=== PATIENT | female | born 1955 | race Caucasian/White ===

== ENCOUNTER → 2019-02-10 08:45 | Outpatient (CLI) | payer MEDICARE, BC, SELFPAY ==
--- NOTE | 2019-02-10 | DI.ECHO.S_ITS ---
[facility] +---------+ : : [address] : [place] : : : : [id number] : : : : Phone: [phone]+ Echocardiogram Report + + :Name: LAURA MCINTOSH Study Date: 02/10/2019 Height: 63 in : :[facility] Exam Location: [facility] Weight: 224 lb : : Gender: Female BSA: 2.0 m2 : :: 1955 Age: 63 yrs BP: 132/70 mmHg: :Reason For Study: Murmur/HTN : :Ordering Physician: Cristy Damico Performed By: Leigh Page : + + Interpretation Summary The ejection fraction is estimated to be 60-65%. The ascending aorta is mildly enlarged. There is no significant valvular heart disease. Procedure: A two-dimensional transthoracic echocardiogram with color flow and Doppler was performed. The study quality was technically adequate. There is no prior echocardiogram noted for this patient. The patient was in normal sinus rhythm during the exam. The patient had occasional PVCs during the exam. Left Ventricle: Left ventricular wall thickness is borderline increased. The left ventricle is normal in size. The ejection fraction is estimated to be 60- 65%. There are no focal wall motion abnormalities. Right Ventricle: The right ventricle is normal in size and function. Atria: Both atria are normal in size. There is no Doppler evidence for an interatrial shunt. Mitral Valve: The mitral valve is normal in structure and function. There is no mitral regurgitation noted. Aortic Valve: The aortic valve is grossly normal. The aortic valve opens well. No aortic regurgitation is present. Tricuspid Valve: The tricuspid valve is normal in structure and function. There is a trace or physiologic amount of tricuspid regurgitation. Pulmonary artery pressures cannot be estimated because of the lack of a measurable TR jet velocity. Pulmonic Valve: The pulmonic valve is not well seen, but is grossly normal. There is a trace or physiologic amount of pulmonic regurgitation. Great Vessels: The aortic root is normal size. The ascending aorta is mildly enlarged. The pulmonary artery is normal size. The inferior vena cava was not visualized. Pericardium/ Pleura There is no pericardial effusion. There is no pleural effusion. MMode/2D Measurements & Calculations LVIDd: 5.0 cm Ao root diam: 3.4 cm LVIDs: 2.9 cm asc Aorta Diam: 4.0 cm FS: 41.0 % IVSd: 0.92 cm LVPWd: 0.95 cm LV menjivar. diameter/BSA (cm/m^2): 2.4 LV sys. diameter/BSA (cm/m^2): 1.4 LA A2 area: 20.8 cm2 RA long axis: 5.6 cm LA A4 area: 18.8 cm2 RA area: 18.5 cm2 LA length (vol): 5.5 cm RA vol: 51.9 ml LA vol: 60.4 ml RA : 25.6 ml/m2 LA vol index: 29.8 ml/m2 RVD1 (basal): 3.4 cm RVD2 (mid): 3.0 cm TAPSE: 1.8 cm Doppler Measurements & Calculations Ao V2 max: 175.9 cm/sec LVOT Max Sher: 120.9 cm/sec Ao V2 mean: 116.8 cm/sec LV V1 max P.8 mmHg Ao max P.4 mmHg LV V1 VTI: 18.7 cm Ao mean P.2 mmHg sev ratio: 0.72 Ao V2 VTI: 25.9 cm MV E max sher: 58.9 cm/sec PA V2 max: 94.0 cm/sec MV A max sher: 87.2 cm/sec PA V2 mean: 56.3 cm/sec MV E/A: 0.68 PA mean P.6 mmHg Med Peak E' Sher: 6.2 cm/sec PA Accel Time: 0.11 sec E/E' med: 9.5 Lat Peak E' Sher: 4.7 cm/sec E/E' lat: 12.4 E/e' average: 11.0 MV P1/2t: 46.4 msec MV P1/2t max sher: 59.5 cm/sec MVA(P1/2t): 4.7 cm2 Reading Physician:01:22 PM
== END ==
PROVIDERS: PCP Internal Medicine; Visit Provider Internal Medicine
DX: R01.1 Cardiac murmur, unspecified (principal); I10 Essential (primary) hypertension
CPT/HCPCS: 93306

== ENCOUNTER → 2019-03-21 11:52 | Outpatient (CLI) | payer MEDICARE, BC, SELFPAY ==
--- NOTE | 2019-03-21 | DI.CT.S_ITS ---
PROCEDURE: CT LE RT WO CON INDICATIONS: INILATERAL PRIMARY OSTEOATHRITS R HIP TECHNIQUE: Noncontrast 3 mm axial sections acquired through the bony pelvis. Additional 3 mm axial sections acquired through the symptomatic hip joint, with coronal and sagittal reformats. COMPARISON: None. FINDINGS: Image quality: Excellent. Bones: Moderate to severe right hip joint osteoarthritic changes are seen with near complete loss of superior articulating surface, extensive subchondral sclerosis and cyst formation and marginal osteophyte formation. There is no acute fracture or dislocation. No suspicious intraosseous bony lesion. No evidence of avascular necrosis of femoral head. Mild left hip joint osteoarthritic changes are seen. Bilateral pars defect at L5 level is seen with grade 2 anterolisthesis of L5 on S1 is noted. Degenerative disc disease at L5-S1 level is seen. Soft tissues: No gross right hip or right hemipelvic soft tissue abnormality is seen. No significant joint effusion. There is no bowel obstruction. No peritoneal free fluid or free air. IMPRESSION: 1. Moderate to severe right hip joint osteoarthritis. No fracture or dislocation. No evidence of avascular necrosis of femoral head. 2. Mild left hip joint osteoarthritis. 3. Bilateral pars defect at L5 level with grade 2 anterolisthesis of L5 on S1. Degenerative disc disease at L5-S1 level. Dictated by: Michael Flowers M.D. on 03/21/2019 at 14:02 Approved by: Michael Flowers M.D. on 03/21/2019 at 14:24
== END ==
PROVIDERS: PCP Internal Medicine; Visit Provider Orthopaedic Surgery
DX: M16.11 Unilateral primary osteoarthritis, right hip (principal)
CPT/HCPCS: 73700

== ENCOUNTER 2019-07-31 05:50 | Inpatient (IN) | payer MEDICARE, BC, SELFPAY ==
[2019-07-17 10:01] VITALS: BMI 41.8
[2019-07-31] VITALS (22 sets, daily range): BP systolic 61–154; BP diastolic 35–86; PULSE 72–106; RESP 13–21; TEMP 35.5–37.3; O2SAT 90–98; BMI 41.8
--- NOTE | 2019-07-31 | DI.RAD.S_ITS ---
PROCEDURE: XR PELVIS 1-2V INDICATIONS: TOTAL RT HIP INTEROP TECHNIQUE: Intra-operative view of the pelvis and hip acquired. COMPARISON: [facility], [place], XR PELVIS 1-2V, 07/31/2019, 9:09. FINDINGS: Bones: Intraoperative devices prior to placement of arthroplasty prostheses are in expected positions. No fractures or suspicious bony lesions. Soft tissues: Overlying surgical retractors are present, along with other intraoperative changes. IMPRESSION: Intraoperative image obtained during the patient's right hip arthroplasty. Dictated by: Armin Burt M.D. on 07/31/2019 at 10:03 Approved by: Armin Burt M.D. on 07/31/2019 at 10:04
--- NOTE | 2019-07-31 | DI.RAD.S_ITS ---
PROCEDURE: XR PELVIS 1-2V INDICATIONS: TOTAL RIGHT HIP TECHNIQUE: 1 view of the lower pelvis acquired. COMPARISON: [facility], CT, CT LE RT WO CON, 03/21/2019, 12:10. [facility], CR, XR PELVIS 1 OR 2 VIEWS, 06/20/2019, 13:23. FINDINGS: Bones: Patient is status post right total hip arthroplasty, with hardware components in expected positions. The hip joint appears congruent. The visualized bony structures appear intact. Soft tissues: Overlying postoperative changes are noted. No suspicious soft tissue densities. IMPRESSION: Satisfactory appearance of the right total hip arthroplasty on this single projection. Dictated by: Teddy Dodd M.D. on 07/31/2019 at 9:59 Approved by: Teddy Dodd M.D. on 07/31/2019 at 10:03
--- NOTE | 2019-07-31 | DI.RAD.S_ITS ---
PROCEDURE: XR PELVIS 1-2V INDICATIONS: POST OP TECHNIQUE: 1 view of the lower pelvis acquired. COMPARISON: [facility], [place], XR PELVIS 1-2V, 07/31/2019, 10:22. [facility], [place], XR PELVIS 1-2V, 07/31/2019, 9:09. FINDINGS: Bones: Patient is status post right hip arthroplasty, with hardware components in expected positions. The hip joint appears congruent. The visualized bony structures appear intact. Soft tissues: Overlying postoperative changes are noted. No suspicious soft tissue densities. IMPRESSION: No [place] bone injury found after operative procedure of right total hip arthroplasty. Normal alignment established. Dictated by: Clovis Hurley M.D. on 07/31/2019 at 12:37 Approved by: Clovis Hurley M.D. on 07/31/2019 at 12:38
[2019-07-31] MEDS: LACTATED RINGERS 1,000 ML 42 ML IV ×4 (07:12→12:19)
[2019-07-31] MEDS: PREGABALIN 75 MG CAPSULE PO (07:17)
[2019-07-31] MEDS: CELECOXIB 200 MG CAPSULE PO (07:17)
[2019-07-31] MEDS: ACETAMINOPHEN 325 MG TABLET 975 MG PO (07:17)
--- NOTE | 2019-07-31 07:41 | PM.PREOP ---
Pre-operative Note Interval Note History & Physical reviewed/Exam performed by Physician: Yes Changes to H&P: No H&P completed within 30 days and has changed as indicated here:: Plan for posterior R MESHA
[2019-07-31] MEDS: CEFAZOLIN 2 GM/100 ML FROZ.PIGGY IV (07:45)
[2019-07-31] MEDS: ROPIVACAINE 0.5% PF 5 MG/ML 20ML VIAL 60 ML INJ (08:23)
[2019-07-31] MEDS: MORPHINE 4 MG/ML INJ INJ (08:24)
[2019-07-31] MEDS: KETOROLAC 30 MG/ML VIAL IV (08:24)
[2019-07-31] MEDS: TRANEXAMIC ACID 1,000 MG VIAL 2000 MG INJ ×2 (08:25→10:52)
--- NOTE | 2019-07-31 08:34 | SUR.OPER ---
Lateral on padded OR bed. Gel axillary roll. Arms secured on padded armboard with pillow supporting top arm. Padded hip positioner braces x4 - anterior and posterior chest and pelvis. Additional gel pad used anterior pelvis. Gel pad under bottom leg from knee to foot and secured with tape over sheet.
--- NOTE | 2019-07-31 11:17 | PM.OP.1 ---
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 External rotation contracture. Hip flexion contracture. Closure Type: primary Specimen(s): none sent Prosthetic devices, grafts, tissues, transplants, or devices: Munson [employer]hew size 52 cup multi hole 52 mm liner for a 36 head with a 20 degree lip Munson [employer]hew size 12 synergy porous stem Thirty-six Oxinium head +0 Estimated Blood Loss (mL): 700 Procedure in detail: Patient was met in the preoperative holding area with signs of surgery marked by MD all last minute questions were answered. Patient was then brought back in the operating room where she received a spinal anesthetic and was then placed in the left lateral decubitus position all bony prominences were well padded. Mac anesthesia was then provided. The right hip was then prepped and draped in normal sterile fashion. The greater trochanter was marked out and a 12 cm curvilinear incision was made skin incisions made using a 10 blade followed by electrocautery in the subcutaneous layer down to the level of the ITB and ID band was then cleared using a curved osteotome. The IP band was then incised using a new 10. Blade as well as the superior gluteal fascia. The gluteus cheryl fibers were then split in line with with the fibers. At this point was noted that she'd a large gluteus medius and was very contracted both in external rotation and hip flexion. The piriformis was released. As well as the short external rotators and part of the quadratus femoris. A capsular flap was attempted to be treated however he was so sure as to be unusable. The hip was then dislocated and the femoral neck cut was then made using an oscillating saw. We then turned attention to the cup side a Cobra was used to retract the femur anteriorly a 2nd Cobra was placed posteriorly inferiorly. We began reaming with a 43 mm Reamer up to a 47 mm Reamer. The posterior wall was stranding within this point but still had lots of anterior wall. It began up sizing reamers to a 49. A 50 mm cup was then placed. The trial liner was then placed. We then returned our attention to the femoral side a canal finer was then used followed by a lateralized Reamer followed by power reamers 03/03/2010 and 06 06. Began broaching 05/05/2012 and got good 6 secure fit with the size 12 broach with good rotational stability. We then trialed with a standard offset head and neck. Intraop x-ray was taken to verify positioning and leg length. Overall were happy with both. We then dislocated the hip returned to the acetabular side and placed 3 screws followed by a 20 degree lip liner. We then trialed again at this point the cup disengage from the acetabulum Boone screws present. The cup was then removed along with the screws. We then reassessed our acetabular cup and it could not find any discontinuity in the pelvis. Or posterior wall fracture. I then reamed up to 51 mm Reamer making sure to take only bone from the anterior wall a 52 mm multi hole cup was then selected. This was malleted into place. Intraoperative x-ray was taken to verify positioning 3 screws were then placed into the 52 mm multi hole cup. Trialing was again performed at this point I determined that she would require a lipped liner. A 52 mm 20 degree lip liner was then placed and the hip was brought through range of motion again. No posterior impingement with external rotation and was stable full flexion. At 90? of flexion internal rotation she could internally rotate 50? prior to subluxation. The hip was then dislocated the broach was then removed and a size 12 synergy stem was placed. A 36 mm Oxinium head was then malleted onto the trunnion and hip was reduced and brought through final range of motion. The wound was then copiously irrigated. We're not able to repair the posterior capsule as it was too short. The piriformis was also too tight to repair his way that it would compress the sciatic nerve. The quadratus was repaired along with the ITB band ID band was closed using 1. Vicryl interrupted fashion followed by 1. Vicryl in running suture for the superior gluteal fascia. A 1. Vicryl was then used in the subcutaneous layer followed by 2. Vicryl in interrupted fashion in the subcuticular followed by a strata Fix of by Dermabond followed by Aquacel dressing. Complications: none Post-operative Condition: stable Disposition: PACU Plan for aftercare: Posterior hip precautions. Abduction in brace in bed. WBAT LLE. ASA 81mg BID for DVT prophyalxis for 6 weeks.
[2019-07-31] MEDS: fentaNYL 100 MCG/2 ML INJ IV (11:33)
[2019-07-31] MEDS: INSULIN ASPART 100 UNIT/ML 10ML VIAL SUBCUT (12:03)
[2019-07-31] MEDS: OXYCODONE IR 5 MG TABLET PO ×3 (12:18→19:53)
--- NOTE | 2019-07-31 12:53 | SUR.PHASEI ---
Addendum entered by Nitza Santacruz R.N. 07/31/19 13:27: Patient taken to room 205 in bed with all belongings. Report given to receiving nurse. Systolic blood pressure upon arrival of 106. Patient left in stable condition with receiving RN at bedside. Original Note: 1145 - Received patient from previous nurse Ivette. Patient hypotensive since surgery. Anesthesiologist aware and at bedside. Patient has second liter of LR hanging with pressure bag in place per verbal order. Patient complains of pain. Wedge pillow placed between legs perDr. Foster as patient wishes to lay on side. Attempted to dissuade patient from laying onside, but patient continues to complain off lower back pain. Dr. Foster aware and gave ok to be on side as long as immobility pillow is in place between legs. Patient repositioned with pillow in place for comfort. Continues to have low blood pressures, but is asymptomatic. 1257 - Patient 's last two blood pressures showed MAP's of 72 ant 78. Patient resting peacefully in bed with eyes closed and even, unlabored breathing. Dr. Vickers updated on blood pressures and stable status. States she is comfortable with her going to floor.
[2019-07-31] MEDS: LACTATED RINGERS 1,000 ML 125 ML IV ×2 (13:51→22:04)
[2019-07-31] MEDS: ACETAMINOPHEN 325 MG TABLET 650 MG PO ×2 (14:57→20:00)
--- NOTE | 2019-07-31 15:47 | PC.NURSE ---
1315 received from PACU, patient laying in bed, blood pressure improved and patient talkative and pleasant. Abduction device in place. Aquacel dressing in place to right hip and CDI. Wiggling toes and legs, with + CMS. Denies nausea. IV fluids started as ordered. Patient oriented to room and call light. Her is at bedside. Call light within reach, bed alarm activated for safety. Patient states she took pain medications in the pacu and is starting to get relief and would like to try to rest and nap.
--- NOTE | 2019-07-31 15:48 | PT.IIE ---
Current Diagnoses Other unilateral secondary osteoarthritis of hip (07/31/19) Surgery Performed Operation Date: 07/31/19 07:45 Actual Procedures p Total Hip Arthroplasty(Right) - Sam Foster MD Surgical History (Last Updated 07/17/19 @ 12:11 by Georgie Singh RN) Hx of LASIK (Acute) Status post breast reduction Status post delivery Status post hysterectomy Medical History (Last Updated 07/17/19 @ 12:11 by Georgie Singh RN) HLD (hyperlipidemia) (Acute) HTN (hypertension) (Acute) YESIKA on CPAP (Acute) Osteoarthritis (Acute) Physical Therapy Inpatient Evaluation/Re-Eval M1 PT/OT-IP Prior Functional Status Start: 07/31/19 13:52 Freq: NEEDED Status: Active Protocol: Document 07/31/19 15:23 AW (Rec: 07/31/19 15:48 AW [id number]) Medical Review Prior Functional Status Medical History Reviewed Yes Communication WNL Mobility and Gait Independent with pain but without assistive device up to parking lot distances. Pt could ambulate car to store and then use shopping cart for support. Activities of Daily Living and IADL's Pt endorses difficulty donning shoes and socks, requiring occasional assist from her , but was otherwise independent with ADL's Social History Household Members spouse Living Arrangements House Number of Floors (Floors) Two Floors Number of Stairs To Enter/Railing? 1 with post on right side + deck + short threshold. May be able to use walker on these stairs. Enters on main level and the house is set up so that pt can live on the main level. They use the upstairs for guests only. Home Environment High Toilet,Walk in Shower, Built-In Shower Seat Home Equipment Front Wheel Walker,Straight Cane,Raised Toilet Seat w/ Armrests,Hand Held Shower, Spanish Medical Interpreter,Grab Bars Near Toilet Employment Status Retired Additional Social History Comment Pt lives with her retired , Benjy, who is able and available to assist as needed. Note: pt tends to sleep shifted toward left side due to chronic back pain. PT advised pt to use abduction pillow at all times for sleeping in order to maintain precautions and avoid crossing midline with the R LE. M2 PT-IP Current Condition Start: 07/31/19 13:52 Freq: NEEDED Status: Active Protocol: Document 07/31/19 15:23 AW (Rec: 07/31/19 15:48 AW [id number]) Physical Therapy Current Condition Current Condition Evaluation Date 07/31/19 Treatment Diagnosis s/p R MESHA with posterior approach;difficulty in walking Onset Date 07/31/19 Precautions Posterior Hip Precautions No Hip Flexion > 90 degrees,No Hip Internal Rotation,No Hip Adduction Other Precautions abduction pillow at all times in the bed; consider use of abduction pillow while up in chair. Weight Bearing Status Weight Bearing Status Weight Bear as Tolerated M3 PT-IP Subjective Start: 07/31/19 13:52 Freq: NEEDED Status: Active Protocol: Document 07/31/19 15:23 AW (Rec: 07/31/19 15:48 AW [id number]) Subjective Physical Therapy Visit Type Type Initial Evaluation Visit Start Time 14:25 Visit Stop Time 15:04 Total Visit Minutes 39 Notes Pt's spouse, Benjy, present throughout evaluation. Number of EXTERNAL GRINDER Visits 0 Physical Therapy Visit Comments Patient Comments Pt is sleepy but willing to mobilize with PT Patient Goals To go home with spouse assistance Therapy Pain Assessment Pain When Pain Assessed During Mobility Pain Present Pain Present Pain Reported Location right hip Intensity 3 Scale Used 3/10 at rest; unchanged with mobility Pain Management Techniques Apply Cold,Re-positioning, Timing of Activity with Medications M4 PT-IP Mobility and Gait Start: 07/31/19 13:52 Freq: NEEDED Status: Active Protocol: Document 07/31/19 15:23 AW (Rec: 07/31/19 15:48 AW [id number]) PT-Bed Mobility Assessment Supine to Sit Supine to Sit Moderate Assistance,1 Person Assistance,Bedrails Scooting Scooting to Edge of Bed Contact Guard Assistance PT-Transfer Assessment Sit to and From Stand Sit to and from Stand Minimal Assistance,Moderate Assistance,1 Person Assistance ,Use of Upper Extremities Equipment Transfer Assistive Device Gait Belt,Front Wheeled Walker Orthotic/Prosthetic Devices or Brace: No Transfers Transfer Destination Chair Transfer Technique Stand Step Pivot Transfer Ability Level of Assist Minimal Assistance,1 Person Assistance,Use of Upper Extremities Comments Mobility Comments BP supine was 119/58. Pt completed supine to sit with min A x 1 to rotate her hips using draw sheet and to pull up to seated position. Scooting toward EOB required CGA for balance. Pt was able to sit EOB with and without UE support. She complained of mild lightheadedness in sitting with BP measured at 111/64. With symptoms resolving pt stood using FWW mod A x 1 and cues for proper pushoff using UE's. Pt sat again EOB with cues for positioning the R LE and then stood again min A x 1 to transfer to chair at bedside using stand step pivot technique min A x 1. Pt was positioned in the chair with abduction pillow in place, call light in reach, ice pack applied to surgical site, and spouse at bedside. BP after transfer was 93/53 but pt reported no increase in lightheadedness. Gait Assessment Gait Gait Assistance Required: Minimum Assistance,1 Person Assist Distance (Feet) 2 Able to Maintain Weight Bearing Status Yes During Gait Assistive Devices Assistive Device Gait Belt,Front Wheeled Walker Orthotic/Prosthetic Devices or Brace: No Gait Deviations General Gait Pattern Antalgic,Decreased Stride Length,Decreased Feet Clearance,Flexed Trunk,Step-to Gait Factors Limiting Gait Function Factors Limiting Gait Function Decreased Strength,Limited Range of Motion,Pain,Poor Balance Comments Gait Comments See mobility comments Stair Climbing Assessment Comments Stair Climbing Comments Not assessed. PT-Balance Assessment Sitting Balance and Reactions Static Sitting Balance Ability Good Dynamic Sitting Balance Ability Good Standing Balance and Reactions Static Standing Balance Ability Fair Dynamic Standing Balance Ability Fair Device Used FWW M5 PT-IP Objective Assessments Start: 07/31/19 13:52 Freq: NEEDED Status: Active Protocol: Document 07/31/19 15:23 AW (Rec: 07/31/19 15:48 [id number]) Orientation Orientation/Cognition Level of Alertness Alert Orientation Name,Month,Place,Situation Language Function Ability No Deficits Noted Safety Awareness Understands Safety Issues Memory Description No Deficits Noted Gross Range of Motion Upper Extremity ROM Assessment Within Functional Limits Lower Extremity ROM Assessment Right Impaired Strength Upper Extremity Strength Assessment Within Functional Limits Lower Extremity Strength Assessment Right Impaired Comments Strength Comments L LE grossly 4/5 on MMT possibly due to decreased effort and pain Coordination Assessment Gross Coordination Gross Coordination WNL Sensation Assessment Sensation Gross Sensation WNL M6 PT-IP Treatment Start: 07/31/19 13:52 Freq: NEEDED Status: Active Protocol: Document 07/31/19 15:23 AW (Rec: 07/31/19 15:48 [id number]) Physical Therapy Treatment Exercises Exercises Ankle Pumps,Gluteal Sets,Quad Sets Education Education Provided Precautions,Weight Bearing Status,Post-Op Packet,Safety Other Treatments Other Treatment Performed Educated pt on role of PT, plan of care, posterior hip precautions, post-op exercises , and safe use of FWW. M7 PT-IP Assessment and Plan Start: 07/31/19 13:52 Freq: NEEDED Status: Active Protocol: Document 07/31/19 15:23 AW (Rec: 07/31/19 15:48 AW [id number]) PT Summary Assessment and Plan Potential Rehabilitation Potential Good Status of Condition at Evaluation Evolving Summary Impairments Pain,ROM,Strength,Balance,Bed Mobility,Transfers,Gait Assessment Summary Courtney is a 63 yo woman with history of chronic back pain and Legg Calve Perthes disease who was seen for PT evaluation on POD0 following R MESHA with posterior approach. At baseline, pt was an independent ambulator up to parking lot distances and was largely independent with ADL's though did require occasional assist for lower body dressing due to pain. On evaluation, pt required min to mod assist x 1 for all mobilities. She was able to verbalize posterior hip precautions with good understanding of their rationale. PT anticipates she will progress quickly and meet the functional goals of this plan of care. In that case, she will be safe to discharge home with her spouse for assistance and outpatient PT. Goals Bed Mobility Goal Standby Assistance Transfer Goal Standby Assistance,Front Wheeled Walker Gait Goal Standby Assistance,Front Wheel Walker Gait Distance 120 Other Goals - up/down platform step x 2 with FWW SBA for safe entry to the home Days to Meet Goals 2 Frequency of Treatment Frequency Of Treatment Twice a Day Treatment Plan Physical Therapy Treatment Plan Bed Mobility Training,Transfer Training,Gait Training, Therapeutic Exercise,Balance Retraining,Post Op Education, Discharge Planning,Hot or Cold Pack,Neuromuscular Re-ed, Manual Therapy Other Recommendations and Next Treatment continue to assess gait; Focus assess stairs; reinforce posterior hip precautions and review ther ex Recommendations To Nursing Amount of Assist Needed 1 Person Assist Discharge Recommendations PT Discharge Recommendations Home with Assistance, Outpatient PT
[2019-07-31] MEDS: CEFAZOLIN VIAL 3 GM in SODIUM CHLORIDE 0.9% 100 ML 200 ML IV (16:13)
[2019-07-31] MEDS: METFORMIN HCL 500 MG TABLET PO (16:13)
[2019-07-31] MEDS: ASPIRIN EC 81 MG TABLET PO (20:00)
[2019-07-31] MEDS: FENOFIBRATE 160 MG TABLET PO (20:00)
[2019-07-31] MEDS: DOCUSATE 100 MG CAPSULE PO (20:00)
[2019-07-31] MEDS: ATORVASTATIN 20 MG TABLET 40 MG PO (20:00)
[2019-07-31 22:22] LABS: Add Manual Diff / Slide Review NO; Basophils Absolute Auto 0 /uL (0-100); Basophils Percent Auto 0.3 % (0-2); Eosinophils Absolute Auto 0 /uL (0-450); Eosinophils Percent Auto 0.4 % (2-4); Hematocrit 27.7 % (36-46); Hemoglobin 9.5 g/dL (12.0-16.0); Lymphocytes Absolute Auto 900 /uL (1100-4500); Lymphocytes Percent Auto 10.8 % (25-40); Mean Corpuscular HGB Conc 34.4 % (30-36); Mean Corpuscular Hemoglobin 30.2 PG (26-34); Mean Corpuscular Volume 87.7 fL (80-100); Monocytes Absolute Auto 700 /uL (0-900); Monocytes Percent Auto 8.8 % (3-14); Neutrophils Absolute Auto 6400 /uL (1500-7000); Neutrophils Percent Auto 79.7 % (50-75); Platelet Count 160 X10^3/uL (150-400); Red Blood Cell Count 3.16 X10^6/uL (4.0-5.2); Red Cell Distribution Width 13.3 % (11.6-14.8)
[2019-08-01] MEDS: CEFAZOLIN VIAL 3 GM in SODIUM CHLORIDE 0.9% 100 ML 200 ML IV (00:58)
[2019-08-01 01:15] VITALS: BP 107/47; PULSE 76; RESP 18; TEMP 37.5; O2SAT 96
--- NOTE | 2019-08-01 01:40 | PC.NURSE ---
Addendum entered by Cammie Colon R.N. 08/01/19 05:23: Temp elevated at 100.4 so medicated with morning scheduled dose of Tylenol at this time to help with both elevated temp and pain. Discussed importance of CDB. Addendum entered by Cammie Colon R.N. 08/01/19 05:11: Up to [facility] with walker and 1 assist. Having 9/10 pain with movement so medicated with Oxycodone and ice applied after assistance back into bed. Original Note: Patient alert and oriented. Breath sounds CTA with RA sat of 96%; using home CPAP and is on continuous oximetry. HRR. Denies nausea. BT hypoactive; denies flatus. Has not voided on this shift as yet, but did void on previous shift; denies dysuria, frequency or urgency. Dressing to right hip is CDI. Denies pain but provided ice pack for comfort. Abduction wedge between legs. Patient declines to turn at this time. CMS is intact. Wearing both DEJA stockings and calf SCD's. Fall risk score is high and bed alarm is activated. Spouse rooming in.
[2019-08-01] MEDS: OXYCODONE IR 5 MG TABLET PO ×3 (05:03→12:24)
[2019-08-01 05:10] VITALS: BP 126/68; PULSE 82; RESP 16; TEMP 38; O2SAT 93
[2019-08-01] MEDS: ACETAMINOPHEN 325 MG TABLET 650 MG PO ×2 (05:21→12:25)
[2019-08-01 06:41] LABS: Hematocrit 25.7 % (36-46); Hemoglobin 8.9 g/dL (12.0-16.0)
--- NOTE | 2019-08-01 07:41 | P.PN_ITS ---
Subjective Subjective Date Patient Seen: 08/01/19 Time Patient Seen: 07:41 Interval history: Post op day 1 s/p RTHA by Dr. Foster. Patient is doing well. Pain in right hip at operative site. Pain is well managed with oxycodone, tylenol. Patient has mobilized with PT. Is ambulating to bathroom. Voiding without difficulty or assistance. Denies fever, chills, chest pain, shortness of breath. Exam Vital Signs (past 8 hours): - 08/01/19 01:15 08/01/19 05:10 Temperature 99.5 F 100.4 F H Pulse Rate 76 82 Respiratory Rate 18 16 Blood Pressure 107/47 L 126/68 Pulse Oximetry 96 93 Oxygen Delivery Method CPAP Oxygen Flow Rate 0 Narrative Exam Narrative: 63 year old female is laying comfortably in bed, in no apparent distress. A&Ox3. Dressing CDI, SCDs in place. Sensory function grossly intact to light touch in LE bl. Dorsalis pedis 2+ bl. Capillary refill <2sec LE bl. Able to actively dorsiflex/plantar flex. Calves warm, soft, compressible, nttp. Objective Labs Result Diagrams: 08/01/19 06:15 Labs: Laboratory Results - last 24 hr 07/31/19 08/01/19 22:10 06:15 WBC 8.0 RBC 3.16 L Hgb 9.5 L 8.9 L Hct 27.7 L 25.7 L MCV 87.7 MCH 30.2 MCHC 34.4 RDW 13.3 Plt Count 160 Neut % (Auto) 79.7 H Lymph % (Auto) 10.8 L [place] % (Auto) 8.8 Eos % (Auto) 0.4 L Baso % (Auto) 0.3 Neut # (Auto) 6400 Lymph # (Auto) 900 L [place] # (Auto) 700 Eos # (Auto) 0 Baso # (Auto) 0 Assessment & Plan Post-op Postoperative Procedures: Procedures Operation Date: 07/31/19 07:45 Actual Procedures Side Surgeon p Total Hip Arthroplasty Right Sam Foster MD Postoperative plan: discharge Postoperative plan narrative: POD 1 s/p RTHA Patient is doing well and can be discharged home pending PT clearance - Patient will be sent home with oxycodone prescription, tylenol, ibuprofen and ASA - ASA 81mg BID for 6 weeks (dvt prophylaxis) Continue current pain medication management Continue SCDs Patient will mobilize with PT Time Spent With Patient Time with patient: less than 15 minutes
--- NOTE | 2019-08-01 08:40 | CM.DPC ---
DCP/continued: Reviewed chart. Patient is a 63yr old female admitted to [facility] with right MESHA performed on 07-31-[address] Foster. PCP is Cristy Damico. Primary payor is 1)Medicare 2)[facility] out of [facility]. Met with patient explained CM/SW role. Patient alert and oriented during visit and spouse/Benjy at bedside. Patient reports that she hopes to d/c home today. Patient awaiting clearance from PT to d/c home today. Patient resides on [facility] and will need priority boarding. Sailing is at 2:10pm today. Spouse provided with prescription to fill at [facility] prior to patient's departure. Patient has appointment on Wednesday08-04-19 on [facility] at [facility] to begin outpatient therapy. P: Anticipate home today with supportive spouse and outpatient therapy. RN/MICHELLE aware patient will need priority boarding. Left vm with PT requesting that they see this AM. FANG Valente Discharge Planning/Care Management CM Discharge Assessment Start: 08/01/19 08:32 Freq: Status: Active Protocol: Document 08/01/19 08:32 KJS (Rec: 08/01/19 08:39 KJS [id number]) Discharge Planning Assessment Assigned Purchasing Officer FANG Valente Contact Information Benjy Gallegos (spouse) [phone] Advance Directives? Yes Advance Directives on File No History Provided By Patient,Family Member, Significant Other,Medical Record Prior Living Arrangements House Household Members spouse Independent with ADL's Yes Caregiver for Another No DME Already Rented / Owned FWW / Walker Patient/Family Preference OP PT Therapy Barriers to Discharge No Discharge Plan Home Transportation Arrangement Spouse to provide transport. Patient resides on [facility] peter need priority boarding. Referrals Initiated None needed Whiteboard Updated in Patient Room with Yes name and ext. # of Purchasing Officer Review Status In Process Next Review Type Continued Stay Review Pre-Anesthesia Assessment Start: 07/17/19 10:00 Freq: Status: Complete Protocol: Document 07/17/19 10:01 CAB (Rec: 07/17/19 10:04 CAB [id number]) Pre-Anesthesia Assessment Patient Information Reviewed Via Phone Assessment Assessment Completed With Patient Diagnostic Results BMP/CMP,CBC,EKG Comment Outside labs/EKG scanned to record Primary Care Provider Cristy Damico Seen Specialist in Last 12 Months Yes Specialist Seen Assistant Dean,Orthopedist Primary Language Czech Senior Administrative Support Required No Height 157.48 cm Weight 103.873 kg Body Mass Index (BMI) 41.8 Hearing Ability Normal Visual Assist Magnifying Glass Dentition Type Teeth, Natural Present Barriers to Learning None Other Aids Yes: CPAP Hx Anesthesia Reactions Yes: PONV Hx Family Anesthesia Reaction No Hx Malignant Hyperthermia No Hx Blood Transfusions No Anesthesia Review Requested Yes: Surgeon requested re: Sleep apnea, diabetes, obesity alcohol intake current alcohol intake frequency a few times a week Smoking Status Former smoker Tobacco type cigarettes how long ago did patient quit smoking Quit 36 years ago Substance Use Type does not use Pain Present Pain Reported Musculoskeletal Symptoms Abnormal Gait,Back Pain, Difficulty Walking History of Falling (Recent or History of No ) Patient is completely paralyzed or No completely immobile Mental Status Oriented to own ability Is patient on oxygen? No Does patient have MARTELL/SOB No Hx Sleep Apnea Yes CPAP/BIPAP use prescribed and used routinely Will Bring CPAP/BIPAP DOS Yes Currently Taking a Beta Surekha No Can You Climb a Flight of Stairs Without No SOB Hx Chest Pain No Hx SOB No Hx Syncope or Dizziness No Anti-Coagulant Therapy No Has a Wood Heel Fitter Machine No Cardiac Testing Yes: Echo @ [facility] 02/10/19 EF 60- 65% Hx Pacemaker/ICD No Pacemaker Rep Required? No Cardiac Clearance Received Not Applicable Diet Type At Home Regular dysphagia No Urinary Catheter Present No Hx Urinary Self Catheterization No Diabetes Yes HgbA1C 5.5 Date 06/28/19 Patient No Lactating No Hx Drug Resistant Organism No Presence of External or Internal Medical No Devices Have you traveled outside the [facility] [place] in the last 30 days? Marital Status Lives With spouse Prior Living Arrangements House Number of Floors (Floors) Two Floors Support System Spouse Patient Discharge Plan Description Home Health Comment Pt advised overnight length of stay per surgeon Feels Safe in Current Environment Yes Been Physically Hurt or Threatened By a No Person in Current Environment Do you have thoughts of harming yourself None or others? Are you currently considering suicide? No Do you have a plan to hurt yourself or No Plan others? Do You Have Any Spiritual Beliefs That No May Affect Your HC Choices? Do You Have Any Cultural Practices That No May Affect Your HC Choices? Who Can We Speak to About Patient's Care Family, friends Identifying Code for Release of Patient Declines to issue Information Health Care Proxy/Next of Kin Benjy () Health Care Proxy Emergency Contact Name Benjy () Emergency Contact Advance Directives? Yes Advance Directives on File No Requested Patient Bring Advanced Yes Directives DOS Power of Activated Sludge Operator No PAC Instructions Bring CPAP/BIPAP,Do not shave/ clip surgical site,Durable medical equipment,Medications to take/avoid,Nasal antibiotic ,No ETOH/petroleum product on skin DOS,NPO,Pre-op antibiotic ,Pre-surgical wash,Sensory aids,Sturdy shoes/comfortable clothes,Do not bring valuables and remove jewelry
[2019-08-01] MEDS: ASPIRIN EC 81 MG TABLET PO (08:41)
[2019-08-01] MEDS: DOCUSATE 100 MG CAPSULE PO (08:41)
[2019-08-01] MEDS: METFORMIN HCL 500 MG TABLET PO (08:41)
[2019-08-01 08:42] VITALS: BP 127/67
[2019-08-01] MEDS: SODIUM CHLORIDE 0.9% FLUSH 10 ML IV (09:50)
--- NOTE | 2019-08-01 10:24 | PT.IPTN ---
Current Diagnoses Other unilateral secondary osteoarthritis of hip (07/31/19) Surgery Performed Operation Date: 07/31/19 07:45 Actual Procedures p Total Hip Arthroplasty(Right) - Sam Foster MD Physical Therapy Treatment Note M2 PT-IP Current Condition Start: 07/31/19 13:52 Freq: NEEDED Status: Active Protocol: Document 07/31/19 15:23 AW (Rec: 07/31/19 15:48 AW [id number]) Physical Therapy Current Condition Current Condition Evaluation Date 07/31/19 Treatment Diagnosis s/p R MESHA with posterior approach;difficulty in walking Onset Date 07/31/19 Precautions Posterior Hip Precautions No Hip Flexion > 90 degrees,No Hip Internal Rotation,No Hip Adduction Other Precautions abduction pillow at all times in the bed; consider use of abduction pillow while up in chair. Weight Bearing Status Weight Bearing Status Weight Bear as Tolerated M3 PT-IP Subjective Start: 07/31/19 13:52 Freq: NEEDED Status: Active Protocol: Document 08/01/19 10:24 CLB (Rec: 08/01/19 13:49 CLB [id number]) Subjective Physical Therapy Visit Type Type Treatment Note Visit Start Time 10:24 Visit Stop Time 10:47 Total Visit Minutes 23 Notes Benjy present for CG training. Number of BLANKET INSPECTOR Visits 1 Physical Therapy Visit Comments Patient Comments Pt agreeable to do therapy. Patient Goals To go home with spouse assistance Therapy Pain Assessment Pain When Pain Assessed During Mobility Pain Present Pain Present Pain Reported Location right hip Intensity 3 Scale Used 3/10 at rest; unchanged with mobility Pain Management Techniques Apply Cold,Re-positioning, Timing of Activity with Medications M4 PT-IP Mobility and Gait Start: 07/31/19 13:52 Freq: NEEDED Status: Active Protocol: Document 08/01/19 10:24 CLB (Rec: 08/01/19 13:49 CLB [id number]) PT-Bed Mobility Assessment Supine to Sit Supine to Sit Minimal Assistance,1 Person Assistance Sit to Supine Sit to Supine Minimal Assistance,1 Person Assistance Scooting Scooting to Edge of Bed Standby Assistance Scooting Up and Down in Bed Standby Assistance PT-Transfer Assessment Sit to and From Stand Sit to and from Stand Contact Guard Assistance,1 Person Assistance,Use of Upper Extremities Equipment Transfer Assistive Device Gait Belt,Front Wheeled Walker Orthotic/Prosthetic Devices or Brace: No Transfers Transfer Destination Bed,Chair Transfer Technique Stand Step Pivot Transfer Ability Level of Assist Contact Guard Assistance,Use of Upper Extremities Comments Mobility Comments Pt able to perform supine<>sit with giving pt Min A of LE's. Pt required CGA for sit<>stand. Pt recalled 3/3 hip precautions. Gait Assessment Gait Gait Assistance Required: Standby Assistance,Contact Guard Assist,1 Person Assist Distance (Feet) 120 Able to Maintain Weight Bearing Status Yes During Gait Assistive Devices Assistive Device Gait Belt,Front Wheeled Walker Gait Deviations General Gait Pattern Antalgic,Decreased Stride Length,Decreased Feet Clearance,Flexed Trunk Factors Limiting Gait Function Factors Limiting Gait Function Decreased Strength,Limited Range of Motion,Pain,Poor Balance Comments Gait Comments Pt able to ambulate in parrish after stair training ~120ft w/ FWW with CGA then only requiring SBA and was able to advance to small step through gait pattern. Stair Climbing Assessment Evaluation Level of Assist On Stairs Contact Guard Assistance,1 Person Assistance Devices Stair Climbing Assistive Devices Front Wheel Walker Technique/Endurance Stair Climbing Direction Ascend and Descend Stair Climbing Technique Step to Step Number of Steps Climbed 1 Stair Climbing Set # Repetitions (reps) 2 Comments Stair Climbing Comments Pt performed plateform step with FWW CGA with therapist for demonstration then with . PT-Balance Assessment Sitting Balance and Reactions Static Sitting Balance Ability Good Dynamic Sitting Balance Ability Good Standing Balance and Reactions Static Standing Balance Ability Fair Dynamic Standing Balance Ability Fair Device Used FWW M5 PT-IP Objective Assessments Start: 07/31/19 13:52 Freq: NEEDED Status: Active Protocol: Document 07/31/19 15:23 AW (Rec: 07/31/19 15:48 AW [id number]) Orientation Orientation/Cognition Level of Alertness Alert Orientation Name,Month,Place,Situation Language Function Ability No Deficits Noted Safety Awareness Understands Safety Issues Memory Description No Deficits Noted Gross Range of Motion Upper Extremity ROM Assessment Within Functional Limits Lower Extremity ROM Assessment Right Impaired Strength Upper Extremity Strength Assessment Within Functional Limits Lower Extremity Strength Assessment Right Impaired Comments Strength Comments L LE grossly 4/5 on MMT possibly due to decreased effort and pain Coordination Assessment Gross Coordination Gross Coordination WNL Sensation Assessment Sensation Gross Sensation WNL M6 PT-IP Treatment Start: 07/31/19 13:52 Freq: NEEDED Status: Active Protocol: Document 07/31/19 15:23 AW (Rec: 07/31/19 15:48 AW [id number]) Physical Therapy Treatment Exercises Exercises Ankle Pumps,Gluteal Sets,Quad Sets Education Education Provided Precautions,Weight Bearing Status,Post-Op Packet,Safety Other Treatments Other Treatment Performed Educated pt on role of PT, plan of care, posterior hip precautions, post-op exercises , and safe use of FWW. M7 PT-IP Assessment and Plan Start: 07/31/19 13:52 Freq: NEEDED Status: Active Protocol: Document 08/01/19 10:24 CLB (Rec: 08/01/19 13:49 CLB [id number]) PT Summary Assessment and Plan Potential Rehabilitation Potential Good Status of Condition at Evaluation Evolving Summary Impairments Pain,ROM,Strength,Balance,Bed Mobility,Transfers,Gait Assessment Summary Pt improved with all mobility was able to increase gait distance and quality, climbed platform step with Husbands assist, was able to assist pt in and out of bed and give pt cues when appropriate. Pt recalled 3/3 hip precautions and use knowledge to show apropriate body mechanics during mobility . Discussed with pt the importance of using abduction pillow while sleeping. Goals Bed Mobility Goal Standby Assistance Transfer Goal Standby Assistance,Front Wheeled Walker Gait Goal Standby Assistance,Front Wheel Walker Gait Distance 120 Other Goals - up/down platform step x 2 with FWW SBA for safe entry to the home Days to Meet Goals 2 Frequency of Treatment Frequency Of Treatment Twice a Day Treatment Plan Physical Therapy Treatment Plan Bed Mobility Training,Transfer Training,Gait Training, Therapeutic Exercise,Balance Retraining,Post Op Education, Discharge Planning,Hot or Cold Pack,Neuromuscular Re-ed, Manual Therapy Recommendations To Nursing Amount of Assist Needed 1 Person Assist Discharge Recommendations PT Discharge Recommendations Home with Assistance, Outpatient PT
--- NOTE | 2019-08-01 15:43 | PC.NURSE ---
Discharge: Late entry (left approx 1310) IV dc'd intact. Discharge instructions reviewed with patient and (by chargeback specialist Ed). Given script for Oxycodone, and she knows to bean picker Aspirin and Acetaminophen to take as directed. All personal belongings collected and sent with patient at discharge. Wheeled out to private vehicle by charge nurse. Sent w/ priority board for ferry to [place].
== END 2019-08-01 16:14 | disposition home or self-care (01) | DRG 470 ==
PROVIDERS: Admitting Provider Orthopaedic Surgery Adult Reconstructive Orthopaedic Surgery; PCP Internal Medicine; Visit Provider Orthopaedic Surgery Adult Reconstructive Orthopaedic Surgery
PROC: 0SR90JZ Replacement of Right Hip Joint with Synthetic Substitute, Open Approach (ICD-10-PCS; CPT 27130; principal; 2019-07-31 07:45)
DX: M16.7 Other unilateral secondary osteoarthritis of hip (principal); Z68.41 Body mass index [BMI] 40.0-44.9, adult; E11.69 Type 2 diabetes mellitus with other specified complication; M91.11 Juvenile osteochondrosis of head of femur [Legg-Calve-Perthes], right leg; G47.33 Obstructive sleep apnea (adult) (pediatric); R01.1 Cardiac murmur, unspecified; I10 Essential (primary) hypertension; E78.5 Hyperlipidemia, unspecified; E66.01 Morbid (severe) obesity due to excess calories; Z79.84 Long term (current) use of oral hypoglycemic drugs; Z87.891 Personal history of nicotine dependence
CPT/HCPCS: 36415; 72170; 82962; 85014; 85018; 85025; 94760; 94762; 97110; 97116; 97161; 97530; C1776; J0690; J1885; J2270; J2405; J2704; J3010

== ENCOUNTER → 2020-05-06 13:01 | Outpatient (CLI) | payer MEDICARE, BC, SELFPAY ==
[2019-07-31 06:44] VITALS: BMI 41.8
== END ==
PROVIDERS: PCP Internal Medicine; Referring Provider Internal Medicine; Visit Provider Internal Medicine
DX: M85.852 Other specified disorders of bone density and structure, left thigh (principal); Z78.0 Asymptomatic menopausal state; Z82.62 Family history of osteoporosis; Z87.891 Personal history of nicotine dependence
CPT/HCPCS: 77080

== ENCOUNTER → 2022-06-16 09:48 | Outpatient (CLI) | payer MEDICARE, BC, SELFPAY ==
[2019-07-31 06:44] VITALS: BMI 41.8
== END ==
PROVIDERS: PCP Internal Medicine; Referring Provider Internal Medicine; Visit Provider Internal Medicine
DX: Z13.820 Encounter for screening for osteoporosis (principal); Z78.0 Asymptomatic menopausal state; M85.88 Other specified disorders of bone density and structure, other site; Z90.710 Acquired absence of both cervix and uterus
CPT/HCPCS: 77080; 77081